=== PATIENT | male | born 1970 | race Caucasian/White ===

== ENCOUNTER 2019-04-17 00:12 | Emergency (ER) | payer BC, OTHER ==
--- NOTE | 2019-04-17 01:31 | NUR ---
CALLED PT THREE TIMES IN WAITING ROOM. NO RESPONSE.
--- NOTE | 2019-04-17 01:52 | NUR ---
CALLED PT THREE TIMES IN WAITING ROOM. NO RESPONSE.
--- NOTE | 2019-04-17 02:38 | NUR ---
CALLED PT THREE TIMES IN WAITING ROOM. NO RESPONSE.
== END 2019-04-17 04:25 | disposition home or self-care (01) ==
LOC: ER 00:16
DX: Z53.21 Procedure and treatment not carried out due to patient leaving prior to being seen by health care provider (principal)